=== PATIENT | male | born 1975 | race Caucasian/White ===

== ENCOUNTER 2018-11-10 11:55 | Emergency (ER) | payer SELFPAY ==
[2018-11-10 12:31] VITALS: BP 124/70; PULSE 74; TEMP 97.4; BMI 31.6
--- NOTE | 2018-11-10 13:32 | PDOC ---
History of Present Illness - General Chief Complaint: Eye Problem Stated Complaint: R EYE SWOLLEN Time Seen by Provider: 11/10/18 13:07 - History of Present Illness Initial Comments: 11/10/18 13:24 43-year-old male without comorbidities presents for evaluation of right eye irritation times one day without systemic symptoms or changes in vision. Past History - Past Medical History Home Medications: Ambulatory Orders Tobramycin 0.3% Ophth Soln [Tobrex Ophthalmic Solution -] 1 drop OU Q4HWA #1 bottle 11/10/18 COPD: No - Suicide/Smoking/Psychosocial Hx Smoking History: Current some day smoker Number of Cigarettes Smoked Daily: 4 Information on smoking cessation initiated: Yes Hx Alcohol Use: No Drug/Substance Use Hx: No Review of Systems - Review of Systems Constitutional: No: Fever HEENTM: Yes: See HPI, Tearing. No: Recent change in vision, Double Vision *Physical Exam - Vital Signs Last Vital Signs Temp Pulse Resp BP Pulse Ox 97.4 F L 74 16 124/70 99 11/10/18 12:29 11/10/18 12:29 11/10/18 12:29 11/10/18 12:29 11/10/18 12:29 - Physical Exam Comments: 11/10/18 13:25 HEAD: NC/AT EYES: Conjuntiva injected on the right with green crust on the lashes upper lid is swollen. MS: Full ROM in all joints without edema NEUROLOGIC: No gross sensory or motor deficits, NVID SKIN: Normal color and temperature no lesions or rashes Moderate Sedation - Procedure Monitoring Vital Signs: Procedure Monitoring Vital Signs Temperature 97.4 F L 11/10/18 12:29 Pulse Rate 74 11/10/18 12:29 Respiratory Rate 16 11/10/18 12:29 Blood Pressure 124/70 11/10/18 12:29 O2 Sat by Pulse Oximetry (%) 99 11/10/18 12:29 *DC/Admit/Observation/Transfer Diagnosis at time of Disposition: Conjunctivitis - Discharge Dispostion Disposition: HOME Condition at time of disposition: Stable Decision to Admit order: No - Prescriptions Prescriptions: Tobramycin 0.3% Ophth Soln [Tobrex Ophthalmic Solution -] 1 drop OU Q4HWA #1 bottle - Referrals Referrals: Gareth Jefferson MD [Staff Physician] - - Patient Instructions Printed Discharge Instructions: Conjunctivitis, DI for Conjunctivitis Additional Instructions: Please use the antibiotics as directed for the next 5 days. Follow-up with ophthalmology in one to 2 days for further evaluation and treatment options. Return to the emergency room should symptoms worsen or go unresolved. - Post Discharge Activity
== END 2018-11-10 13:35 | disposition home or self-care (01) ==
LOC: JERFT 11:55
DX: H10.31 Unspecified acute conjunctivitis, right eye (principal)
CPT/HCPCS: 99281-25